=== PATIENT | female | born 1960 | race Caucasian/White ===

== ENCOUNTER 2024-11-06 12:38 | Emergency (ER) | payer MEDICAID ==
[2024-11-06 13:53] LABS: BASOPHILS ABSOLUTE AUTO 0.1 K/mm3 (0.0-0.2); BASOPHILS PERCENT AUTO 0.7 % (0.0-1.0); EOSINOPHILS ABSOLUTE AUTO 0.1 K/mm3 (0.0-0.4); EOSINOPHILS PERCENT AUTO 1.1 % (0.0-6.0); IMMATURE GRAN ABSOLUTE AUTO 0.03 K/mm3 (0.00-0.05); IMMATURE GRAN PERCENT AUTO 0.4 % (0.0-0.4); LYMPHOCYTES ABSOLUTE AUTO 1.4 K/mm3 (1.0-4.8); LYMPHOCYTES PERCENT AUTO 18.4 % (24.0-44.0); MEAN PLATELET VOLUME 9.9 fl (9.4-12.3); MONOCYTES ABSOLUTE AUTO 0.9 K/mm3 (0.0-0.8); MONOCYTES PERCENT AUTO 11.8 % (0.0-8.0); NEUTROPHILS ABSOLUTE AUTO 5.0 K/mm3 (1.8-7.7); NEUTROPHILS PERCENT AUTO 67.6 % (41.0-71.0); NRBC ABSOLUTE 0.00 (0.00-0.02); NRBC PERCENT 0.0 % (0.0-0.2); PLATELET COUNT,PLT 219 K/mm3 (150-400); RED BLOOD CELL COUNT 4.84 M/mm3 (4.10-5.30); WHITE BLOOD CELL COUNT,WBC 7.45 K/mm3 (3.9-11.3)
[2024-11-06 14:03] LABS: APPEARANCE,URINE CLEAR (Clear); GLUCOSE,URINE NEGATIVE (Negative); OCCULT BLOOD,URINE NEGATIVE (Negative)
[2024-11-06 14:17] LABS: INR 1.04
[2024-11-06 14:19] LABS: EPITHELIAL CELLS,URINE 0-5 /hpf (0-5)
[2024-11-06 14:24] LABS: A/G RATIO 0.9 (1-2); ALANINE AMINOTRANSFERASE,ALT 32.0 U/L (14-59); ASPARTATE AMNIOTRANSFERASE,AST 22.0 U/L (15-37); BILIRUBIN TOTAL 0.3 mg/dL (0.2-1.0); BLOOD UREA NITROGEN,BUN 23.0 mg/dL (7-18); CARBON DIOXIDE,CO2 25.0 mEq/L (21-32); CHLORIDE,CL 104.0 mEq/L (98-107); CREATINE KINASE,CK 215.0 U/L (26-192); CREATININE 1.0 mg/dL (0.55-1.02); EST CRCL DRUG DOSING (CG) 48.44 mL/min; ESTIMATED GFR 63.0 mL/min (>60); GLUCOSE RANDOM 135.0 mg/dL (70-99); POTASSIUM,K 4.0 mEq/L (3.5-5.1); PROTEIN TOTAL,TP 6.8 g/dl (6.4-8.2); SODIUM,NA 139.0 mEq/L (136-145); TROPONIN I HIGH SENSITIVITY 7.0 pg/mL (<=51)
[2024-11-06] MEDS: propofoL 1,000 MG/100 ML 100 ML IV SCH (17:20)
[2024-11-06 21:48] LABS: TUBE NUMBER,CSF 2; TUBE VOLUME,CSF 9 ml
[2024-11-06 21:49] LABS: APPEARANCE CSF CLEAR (CLEAR); COLOR,CSF COLORLESS; SUPERNATANT APPEAR,CSF NO XANTHOCHROMIA
[2024-11-06 21:50] LABS: WBC,CSF 44 cells/uL (0-5)
[2024-11-06 21:51] LABS: MONONUCLEAR, CSF 100.0 % (70.0-90.0); POLYMORPHONUCLEAR, CSF 0 % (2-4); RBC,CSF 22 cells/uL (0-0)
[2024-11-09 12:47] LABS: LYME VLSE1/PEPC10 ABS, ELISA 0.13 IV (<=0.90)
[2024-11-09 16:42] LABS: CMV QNT BY NAAT, INTERP,PL Not Detected (Not Detected); CMV QNT BY NAAT, IU/ML,PL Not Detected; CMV QNT BY NAAT, LOGIU/ML,PL Not Detected log IU/mL
[2024-11-09 22:42] LABS: V ZOSTER IGG 0.73 S/CO (<=0.99); V ZOSTER IGM 0.56 ISR (<=0.90)
[2024-11-10 04:47] LABS: HSV SUBTYPE SOURCE CSF; HSV1 SUBTYPE BY PCR Not Detected; HSV2 SUBTYPE BY PCR Not Detected
== END 2024-11-06 18:55 | disposition home or self-care (01) ==
LOC: JD.ED 12:38
DX: G91.2 (Idiopathic) normal pressure hydrocephalus (principal); I10 Essential (primary) hypertension; E78.00 Pure hypercholesterolemia, unspecified
CPT/HCPCS: 36415; 62270; 70551; 80053; 81001; 82550; 82945; 83690; 83735; 83880; 84484; 85025; 85610; 86618; 86787; 87070; 87205; 87252; 87449; 87497; 87529; 89050; 93005; 96365; 99285; C1758; J2704; J7030; 93010; 99284; G0433

== ENCOUNTER 2025-01-30 23:46 | Inpatient (IN) | payer MEDICAID ==
[2025-01-30] MEDS ORDERED: Sodium Chloride 0.9% 10 ML Syringe FLUSH PRN (23:52)
[2025-01-31 00:09] LABS: APPEARANCE,URINE SLT CLOUDY (Clear); GLUCOSE,URINE NEGATIVE (Negative); OCCULT BLOOD,URINE NEGATIVE (Negative)
[2025-01-31 00:09] LABS: BASOPHILS ABSOLUTE AUTO 0.1 K/mm3 (0.0-0.2); BASOPHILS PERCENT AUTO 1.0 % (0.0-1.0); EOSINOPHILS ABSOLUTE AUTO 0.0 K/mm3 (0.0-0.4); EOSINOPHILS PERCENT AUTO 0.4 % (0.0-6.0); IMMATURE GRAN ABSOLUTE AUTO 0.08 K/mm3 (0.00-0.05); IMMATURE GRAN PERCENT AUTO 1.2 % (0.0-0.4); LYMPHOCYTES ABSOLUTE AUTO 1.3 K/mm3 (1.0-4.8); LYMPHOCYTES PERCENT AUTO 18.3 % (24.0-44.0); MEAN PLATELET VOLUME 9.9 fl (9.4-12.3); MONOCYTES ABSOLUTE AUTO 1.4 K/mm3 (0.0-0.8); MONOCYTES PERCENT AUTO 19.8 % (0.0-8.0); NEUTROPHILS ABSOLUTE AUTO 4.0 K/mm3 (1.8-7.7); NEUTROPHILS PERCENT AUTO 59.3 % (41.0-71.0); NRBC ABSOLUTE 0.00 (0.00-0.02); NRBC PERCENT 0.0 % (0.0-0.2); PLATELET COUNT,PLT 296 K/mm3 (150-400); RED BLOOD CELL COUNT 5.19 M/mm3 (4.10-5.30); WHITE BLOOD CELL COUNT,WBC 6.82 K/mm3 (3.9-11.3)
[2025-01-31] MEDS: Furosemide 40 MG/4 ML VIAL IVPUSH ONE (00:30)
[2025-01-31 00:31] LABS: INR 1.03
[2025-01-31 00:33] LABS: SQUAMOUS EPITHELIAL CELLS,UR 0-5 /hpf (0-5)
[2025-01-31 00:41] LABS: A/G RATIO 0.5 (1-2); ALANINE AMINOTRANSFERASE,ALT 66 U/L (14-59); ASPARTATE AMNIOTRANSFERASE,AST 43 U/L (15-37); BILIRUBIN TOTAL 0.4 mg/dL (0.2-1.0); BLOOD UREA NITROGEN,BUN 24 mg/dL (7-18); CARBON DIOXIDE,CO2 30 mEq/L (21-32); CHLORIDE,CL 107 mEq/L (98-107); CREATININE 0.8 mg/dL (0.55-1.02); ESTIMATED GFR 82 mL/min (>60); GLUCOSE RANDOM 149 mg/dL (70-99); POTASSIUM,K 3.9 mEq/L (3.5-5.1); PROTEIN TOTAL,TP 6.6 g/dl (6.4-8.2); SODIUM,NA 144 mEq/L (136-145); TROPONIN I HIGH SENSITIVITY 39 pg/mL (<=51)
[2025-01-31] MEDS: methylPREDNISolone Sodium Succinate 125 MG/2 ML SDV IVPUSH ONE (01:53)
[2025-01-31 01:57] LABS: BASE EXCESS ARTERIAL 4.9 (-2-2.0); BICARBONATE,ARTERIAL 28.1 meq/L (22.0-26.0); PCO2 ARTERIAL 36.0 mmHg (35.0-45.0); PO2 ARTERIAL 72.0 mmHg (80.0-100.0)
[2025-01-31 01:59] LABS: PATIENT RESPIRATORY RATE 29.0 /MIN
[2025-01-31] MEDS: Diltiazem 25 MG/5 ML SDV IVPUSH ONE (03:36)
[2025-01-31] MEDS: Magnesium Sulfate 2 GM/50 mL 2 GM in Premix Bag 1 BAG IV ONE (05:04)
[2025-01-31] MEDS ORDERED: Ondansetron 4 MG/2 ML SDV IV PRN (06:18)
[2025-01-31] MEDS: Metoprolol Tartrate 5 MG/5 ML SDV IVPUSH SCH (06:34)
[2025-01-31] MEDS: cefTRIAXone 2 GM in Water For Injection, Sterile 20 ML IVPUSH ONE (06:34)
[2025-01-31 06:35] LABS: LACTIC ACID 1.3 mmol/L (0.4-2.0)
[2025-01-31] MEDS: Iopamidol 755 Mg/ML 100 ML Bottle IVPUSH ONE (07:51)
[2025-01-31] MEDS: Sodium Chloride 0.9% 10 ML Syringe FLUSH ONE (07:52)
[2025-01-31] MEDS: Magnesium Sulfat/D5W 1GM/100ML 1 GM in Premix Bag 1 BAG IV ONE (10:29)
[2025-02-01 05:46] LABS: MEAN PLATELET VOLUME 10.4 fl (9.4-12.3); NRBC ABSOLUTE 0.00 (0.00-0.02); NRBC PERCENT 0.0 % (0.0-0.2); PLATELET COUNT,PLT 276 K/mm3 (150-400); RED BLOOD CELL COUNT 4.42 M/mm3 (4.10-5.30); WHITE BLOOD CELL COUNT,WBC 8.28 K/mm3 (3.9-11.3)
[2025-02-01 06:18] LABS: A/G RATIO 0.4 (1-2); ASPARTATE AMNIOTRANSFERASE,AST 29.0 U/L (15-37); BILIRUBIN TOTAL 0.3 mg/dL (0.2-1.0); ESTIMATED GFR 82.0 mL/min (>60); GLUCOSE RANDOM 120.0 mg/dL (70-99); PROTEIN TOTAL,TP 5.9 g/dl (6.4-8.2)
[2025-02-01 06:44] LABS: ALANINE AMINOTRANSFERASE,ALT 54.0 U/L (14-59); BLOOD UREA NITROGEN,BUN 24.0 mg/dL (7-18); CARBON DIOXIDE,CO2 30.0 mEq/L (21-32); CHLORIDE,CL 108.0 mEq/L (98-107); CREATININE 0.8 mg/dL (0.55-1.02); EST CRCL DRUG DOSING (CG) 66.51 mL/min; POTASSIUM,K 3.6 mEq/L (3.5-5.1); SODIUM,NA 145.0 mEq/L (136-145); TSH 0.739 uIU/mL (0.358-3.74)
[2025-02-01] MEDS: methylPREDNISolone Sodium Succinate 125 MG/2 ML SDV IVPUSH SCH (08:04)
[2025-02-01 17:11] LABS: BLOOD UREA NITROGEN,BUN 25.0 mg/dL (7-18); CARBON DIOXIDE,CO2 28.0 mEq/L (21-32); CHLORIDE,CL 106.0 mEq/L (98-107); CREATININE 0.7 mg/dL (0.55-1.02); EST CRCL DRUG DOSING (CG) 76.01 mL/min; ESTIMATED GFR 97.0 mL/min (>60); GLUCOSE RANDOM 156.0 mg/dL (70-99); POTASSIUM,K 3.6 mEq/L (3.5-5.1); SODIUM,NA 143.0 mEq/L (136-145)
[2025-02-02 05:39] LABS: MEAN PLATELET VOLUME 10.1 fl (9.4-12.3); NRBC ABSOLUTE 0.00 (0.00-0.02); NRBC PERCENT 0.0 % (0.0-0.2); PLATELET COUNT,PLT 268 K/mm3 (150-400); RED BLOOD CELL COUNT 4.31 M/mm3 (4.10-5.30); WHITE BLOOD CELL COUNT,WBC 9.00 K/mm3 (3.9-11.3)
[2025-02-02 05:51] LABS: A/G RATIO 0.4 (1-2); ALANINE AMINOTRANSFERASE,ALT 59.0 U/L (14-59); ASPARTATE AMNIOTRANSFERASE,AST 37.0 U/L (15-37); BILIRUBIN TOTAL 0.2 mg/dL (0.2-1.0); BLOOD UREA NITROGEN,BUN 26.0 mg/dL (7-18); CARBON DIOXIDE,CO2 31.0 mEq/L (21-32); CHLORIDE,CL 106.0 mEq/L (98-107); CREATININE 0.7 mg/dL (0.55-1.02); EST CRCL DRUG DOSING (CG) 76.01 mL/min; ESTIMATED GFR 97.0 mL/min (>60); GLUCOSE RANDOM 93.0 mg/dL (70-99); POTASSIUM,K 3.3 mEq/L (3.5-5.1); PROTEIN TOTAL,TP 5.4 g/dl (6.4-8.2); SODIUM,NA 143.0 mEq/L (136-145)
[2025-02-02] MEDS: cefTRIAXone 1 GM in Water For Injection, Sterile 10 ML IVPUSH SCH (13:18)
[2025-02-03 05:45] LABS: MEAN PLATELET VOLUME 9.7 fl (9.4-12.3); NRBC ABSOLUTE 0.00 (0.00-0.02); NRBC PERCENT 0.0 % (0.0-0.2); PLATELET COUNT,PLT 311 K/mm3 (150-400); RED BLOOD CELL COUNT 4.79 M/mm3 (4.10-5.30); WHITE BLOOD CELL COUNT,WBC 11.38 K/mm3 (3.9-11.3)
[2025-02-03 06:04] LABS: A/G RATIO 0.5 (1-2); ALANINE AMINOTRANSFERASE,ALT 66.0 U/L (14-59); ASPARTATE AMNIOTRANSFERASE,AST 31.0 U/L (15-37); BILIRUBIN TOTAL 0.3 mg/dL (0.2-1.0); BLOOD UREA NITROGEN,BUN 25.0 mg/dL (7-18); CARBON DIOXIDE,CO2 31.0 mEq/L (21-32); CHLORIDE,CL 111.0 mEq/L (98-107); CREATININE 0.7 mg/dL (0.55-1.02); EST CRCL DRUG DOSING (CG) 76.01 mL/min; ESTIMATED GFR 97.0 mL/min (>60); GLUCOSE RANDOM 96.0 mg/dL (70-99); POTASSIUM,K 2.9 mEq/L (3.5-5.1); PROTEIN TOTAL,TP 6.0 g/dl (6.4-8.2); SODIUM,NA 148.0 mEq/L (136-145)
[2025-02-04 05:45] LABS: MEAN PLATELET VOLUME 10.4 fl (9.4-12.3); NRBC ABSOLUTE 0.00 (0.00-0.02); NRBC PERCENT 0.0 % (0.0-0.2); PLATELET COUNT,PLT 297 K/mm3 (150-400); RED BLOOD CELL COUNT 4.33 M/mm3 (4.10-5.30); WHITE BLOOD CELL COUNT,WBC 11.68 K/mm3 (3.9-11.3)
[2025-02-04 06:17] LABS: A/G RATIO 0.5 (1-2); ALANINE AMINOTRANSFERASE,ALT 55.0 U/L (14-59); ASPARTATE AMNIOTRANSFERASE,AST 26.0 U/L (15-37); BILIRUBIN TOTAL 0.3 mg/dL (0.2-1.0); BLOOD UREA NITROGEN,BUN 21.0 mg/dL (7-18); CARBON DIOXIDE,CO2 25.0 mEq/L (21-32); CREATININE 0.6 mg/dL (0.55-1.02); EST CRCL DRUG DOSING (CG) 88.68 mL/min; ESTIMATED GFR 100.0 mL/min (>60); GLUCOSE RANDOM 126.0 mg/dL (70-99); POTASSIUM,K 3.9 mEq/L (3.5-5.1); PROTEIN TOTAL,TP 5.1 g/dl (6.4-8.2)
[2025-02-04 06:38] LABS: CHLORIDE,CL 105.0 mEq/L (98-107)
[2025-02-04 06:59] LABS: SODIUM,NA 138.0 mEq/L (136-145)
== END 2025-02-04 14:22 | DRG 871 ==
LOC: JD.ED 23:46 → JD.ICU 01-31 05:37
PROVIDERS: ADMIT Internal Medicine; ATTEND Family Medicine
PROC: 4A033R1 Measurement of Arterial Saturation, Peripheral, Percutaneous Approach (ICD-10-PCS; principal; 2025-01-31)
PROC: 3E03329 Introduction of Other Anti-infective into Peripheral Vein, Percutaneous Approach (ICD-10-PCS; 2025-01-31)
PROC: 3E0333Z Introduction of Anti-inflammatory into Peripheral Vein, Percutaneous Approach (ICD-10-PCS; 2025-01-31)
PROC: 5A09457 Assistance with Respiratory Ventilation, 24-96 Consecutive Hours, Continuous Positive Airway Pressure (ICD-10-PCS; 2025-01-31)
DX: A41.9 Sepsis, unspecified organism (principal); I26.99 Other pulmonary embolism without acute cor pulmonale; J69.0 Pneumonitis due to inhalation of food and vomit; J96.01 Acute respiratory failure with hypoxia; J18.9 Pneumonia, unspecified organism; E87.1 Hypo-osmolality and hyponatremia; I48.91 Unspecified atrial fibrillation; E78.00 Pure hypercholesterolemia, unspecified; H54.7 Unspecified visual loss; R41.81 Age-related cognitive decline; I27.20 Pulmonary hypertension, unspecified; J98.2 Interstitial emphysema; I10 Essential (primary) hypertension; E87.6 Hypokalemia; E87.8 Other disorders of electrolyte and fluid balance, not elsewhere classified; Z79.891 Long term (current) use of opiate analgesic; Z79.1 Long term (current) use of non-steroidal anti-inflammatories (NSAID); Z79.899 Other long term (current) drug therapy; Z87.19 Personal history of other diseases of the digestive system; Z90.89 Acquired absence of other organs; Z98.890 Other specified postprocedural states; Z78.9 Other specified health status; Z99.89 Dependence on other enabling machines and devices
CPT/HCPCS: 36415; 36600; 70450; 70450-26; 71045; 71045-26; 71275; 71275-26; 80048; 80053; 81001; 82140; 82803; 82947; 83605; 83735; 83880; 84443; 84484; 85025; 85027; 85610; 86140; 87040; 87493; 92610-GN; 93005; 93010; 93306; 94640; 94660; 94761; 94762; 96365; 96366; 96368; 96375; 96376; 97162-GP; 97530-GP; 99285; 99285-25; A4216; A9270-GY; C1758; J0616; J0696; J1160; J1163; J1271; J1938; J2543; J2919; J3475; J3480; J3490; J7030; J7070; Q9967